=== PATIENT | male | born 1955 | race Caucasian/White ===

== ENCOUNTER 2019-12-26 14:07 | Emergency (ER) | payer OTHER, SELFPAY ==
[2019-12-26 14:20] VITALS: BP 144/83; PULSE 110; RESP 20; TEMP 37.8; O2SAT 100
--- NOTE | 2019-12-26 14:50 | ED.GENADULT ---
HPI - General Adult General Chief complaint: Upper Respiratory Infection Stated complaint: fever dizzy aches cough Time Seen by Provider: 12/26/19 14:50 Source: patient and RN notes reviewed Mode of arrival: ambulatory Limitations: no limitations History of Present Illness HPI narrative: 64-year-old male with complaints of upper respiratory infection symptoms, body aches, sore throat, fever and chills, congestion, cough, and intermittent dizziness with coughing spells (none now) and intermittent headache (not the worst of his life) for 2 days. Nytime cold medicine without relief. Dry cough. Rhinorrhea and nasal congestion. No exacerbating factors. Fevers, highest 100F, orally with chills. No nausea, vomiting, and abdominal pain. Denies chest pain, dyspnea, coughing up blood, difficulty swallowing, jaw pain, dental pain, facial pain, foreign body sensation, and rash. Remains active. Some parts of this dictation were generated by voice recognition software and may contain typographical and/or grammatical inaccuracies. Related Data Home Medications Medication Instructions Recorded Confirmed No Home Medications 12/26/19 12/26/19 Allergies Allergy/AdvReac Type Severity Reaction Status Date / Time No Known Allergies Allergy Verified 12/26/19 14:38 Review of Systems Review of Systems: Narrative: CONSTITUTIONAL: Complains of low-grade fever, chills. Denies sweats. EYES: Denies visual changes, redness, discharge. ENT: Complains of rhinorrhea, congestion, sore throat. Denies otalgia. CARDIOVASCULAR: Denies chest pain, palpitations, edema. RESPIRATORY: Denies dyspnea, wheezing. Complains of dry cough. GASTROINTESTINAL: Denies abdominal pain, nausea, vomiting, diarrhea. GENITOURINARY: Denies dysuria, hematuria, abnormal discharge. SKIN: Denies rash or itching. MUSCULOSKELETAL: Denies acute back pain, joint pain. Complains of myalgia. NEUROLOGIC: Denies numbness or focal weakness. Complains of intermittent GABRIEL and dizziness with coughing episodes. PSYCHIATRIC: Denies anxiety or depression. All systems reviewed & are unremarkable except as noted in HPI and below PMFSH Past Medical History Medical History (Updated 12/26/19 @ 15:39 by ADA Garcia) No significant past medical history Surgical History Surgical History (Updated 12/26/19 @ 15:39 by ADA Garcia) No significant past surgical history Family History Family History (Updated 12/26/19 @ 15:40 by ADA Garcia) Sibling Breast cancer Father Cancer Mother Cancer Social History Social History (Updated 12/26/19 @ 15:40 by ADA Garcia) Smoking status: Never smoker Alcohol intake: never Substance use: never Occupation/Education: occupation Gender identity (if verbalized by the patient): Male Comments At time of signature, agree with nurse past medical, surgical, social, and family history. There is no relevant family history pertinent to the presenting complaint. Exam Narrative: Exam Narrative: GENERAL: This is a well-nourished, well-developed patient, in no apparent distress. Speaks in full sentences and ambulates with steady gait without dyspnea. HEAD: normocephalic, atraumatic. EYES: PERRL. Sclera clear/white. Vision is grossly intact. EARS: External ears normal, auditory canals clear and without drainage, TMs normal without perforation. Hearing grossly intact. NOSE: External nose normal with no obvious nasal discharge, left nares with mild redness and enlarged turbinates, yellow rhinorrhea. Right nare with mild redness and yellow rhinorrhea without enlarged turbinates. THROAT: Mucous membranes moist, posterior pharynx with PND, mild erythema, and no exudate to tonsils. Tonsils normal. No drainage, no concern for Peritonsillar abscess. No drooling, trismus, or neck swelling. NECK: Neck supple, non-tender without lymphadenopathy, masses or thyromegaly. CARDIOVASCULAR: Regular rate and rhy
== END 2019-12-26 15:11 | disposition home or self-care (01) ==
PROVIDERS: Emergency Provider Nurse Practitioner Family
DX: J02.9 Acute pharyngitis, unspecified (principal)
CPT/HCPCS: 87081; 87804; 87880; 99213; G0463

== ENCOUNTER 2020-01-01 11:21 | Emergency (ER) | payer OTHER, SELFPAY ==
[2020-01-01 11:29] VITALS: BP 145/86; PULSE 94; RESP 14; TEMP 36.9; O2SAT 100
--- NOTE | 2020-01-01 11:34 | ED.GENADULT ---
HPI - General Adult General Chief complaint: Upper Respiratory Infection Stated complaint: Cold flu symptoms Time Seen by Provider: 01/01/20 11:36 Source: patient and RN notes reviewed Mode of arrival: ambulatory Limitations: no limitations History of Present Illness HPI narrative: This is a 64 years old male presented office for an a return to work note. 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 Otherwise he feels fine. He has a doctor but has not seen him for the last three days. Denies history of HTN. Related Data Allergies Allergy/AdvReac Type Severity Reaction Status Date / Time No Known Allergies Allergy Verified 01/01/20 11:36 Review of Systems Review of Systems: Narrative: CONSTITUTIONAL: Denies fever or feeling ill ENT: Denies congestion or sore throat CARDIOVASCULAR: Denies chest pain RESPIRATORY: Denies dyspnea, wheezing. Reports a little cough GASTROINTESTINAL: Denies abdominal pain, nausea, vomiting, diarrhea. GENITOURINARY: Denies urinary symptoms SKIN: Denies rash MUSCULOSKELETAL: Denies acute back pain NEUROLOGIC: Denies lightheaded PMFSH Past Medical History Medical History GERD (gastroesophageal reflux disease) Surgical History Surgical History No significant past surgical history Family History Family History Sibling Breast cancer Father Cancer Mother Cancer Social History Social History Smoking status: Never smoker Alcohol intake: never Substance use: never Gender identity (if verbalized by the patient): Male Comments At time of signature, I agree with nursing past medical, surgical, social and family history. There is no relevant family history pertinent to the presenting complaint. Exam Narrative: Exam Narrative: GENERAL: This is a well-nourished, well-developed patient, in no apparent distress. EARS: External ears normal, auditory canals clear and without drainage, TMs normal without perforation. Hearing grossly intact. NOSE: External nose normal with no obvious nasal discharge, nares without redness, no rhinorrhea. THROAT: Mucous membranes moist, posterior pharynx clear. NECK: Neck supple, non-tender without lymphadenopathy, masses or thyromegaly. CARDIOVASCULAR: Regular rate and rhythm without murmurs, gallops, or rubs. RESPIRATORY: Clear to auscultation. Breath sounds equal bilaterally. No wheezes, rales, or rhonchi. GASTROINTESTINAL: Abdomen soft, non-tender, nondistended. Bowel sounds are active. No hepato-splenomegaly, or palpable masses. No guarding. SKIN: warm, intact with no suspicious lesions or rash, good texture and turgor. NEURO: awake, alert, and oriented to person, place and time. There were no obvious focal neurologic abnormalities. Steady gait Elizabeth Coma Scale Eye Opening: Spontaneous 4 Angie Coma Scale Motor: Obeys Commands 6 Elizabeth Coma Scale Verbal: Oriented 5 Course Vital Signs Vital signs: Vital Signs Temperature 98.4 F 01/01/20 11:29 Pulse Rate 94 01/01/20 11:29 Respiratory Rate 14 01/01/20 11:29 Blood Pressure 145/86 H 01/01/20 11:29 Pulse Oximetry 100 01/01/20 11:29 Temperature 98.4 F 01/01/20 11:29 Pulse Rate 94 01/01/20 11:29 Respiratory Rate 14 01/01/20 11:29 Blood Pressure 145/86 H 01/01/20 11:29 Pulse Oximetry 100 01/01/20 11:29 Medical Decision Making MDM Narrative Medical decision making narrative: Discharge instructions reviewed with patient, as well as provided in writing per nursing staff. The instructions also include specific a
== END 2020-01-01 11:50 | disposition home or self-care (01) ==
PROVIDERS: Emergency Provider Nurse Practitioner
DX: Z02.79 Encounter for issue of other medical certificate (principal); R03.0 Elevated blood-pressure reading, without diagnosis of hypertension; K21.9 Gastro-esophageal reflux disease without esophagitis
CPT/HCPCS: 99211; G0463

== ENCOUNTER 2024-02-21 12:25 | Emergency (ER) | payer BC, SELFPAY ==
[2024-02-21 12:35] VITALS: BP 178/101; PULSE 77; RESP 20; TEMP 37; O2SAT 98
--- NOTE | 2024-02-21 12:49 | ED.GENADULT ---
HPI - General Adult General Chief complaint: Headache Stated complaint: Blood pressure high Source: patient Mode of arrival: ambulatory Limitations: no limitations History of Present Illness HPI narrative: Patient presents for evaluation of headache and elevated blood pressure. He indicates he has had right occipital headache on and off for the last 3 days. Pain was a dull ache. At worst pain was 8/10 in severity. He took ibuprofen and excedrin which both seemed to help. He took a dose of Excedrin at 6:00 a.m. this morning and has been pain-free since noon today. He felt dizzy earlier today. Due to recurrence of his symptoms his son checked his blood pressure which was in the 190/110's. His son told him with an elevated blood pressure to that degree he could have a stroke. That made him anxious so he opted to come in for further evaluation. He reports an increase in stress as of late related to work. On arrival here his blood pressure is 178/101. No history of headaches or hypertension. Denies any changes with speech, swallowing, movement or sensation in his extremities, nausea, vomiting, or confusion. He reports some recent postnasal drainage and occasional cough. He states at the present time he feels great. He does not smoke. Related Data Allergies Allergy/AdvReac Type Severity Reaction Status Date / Time No Known Allergies Allergy Verified 02/21/24 12:41 Review of Systems Review of Systems: CONSTITUTIONAL: Denies fever, chills, or sweats. EYES: Denies visual changes, redness, or discharge. ENT: Reports postnasal drainage. Denies congestion, sore throat, or otalgia. CARDIOVASCULAR: Denies chest pain, palpitations, or edema. RESPIRATORY: Reports mild occasional cough. Denies shortness of breath GASTROINTESTINAL: Denies abdominal pain, nausea, vomiting, or diarrhea. GENITOURINARY: Denies dysuria or hematuria. SKIN: Denies rash or itching. MUSCULOSKELETAL: Denies back pain, joint pain, or myalgia. NEUROLOGIC: Reports dizziness earlier today, now resolved. Reports recent headache, none currently. Denies numbness, dizziness, or weakness. PSYCHIATRIC: Reports recent anxiety, now improved. Denies depression. [facility] Past Medical History Medical History (Updated 02/21/24 @ 14:13 by Abdirahman Hamilton, [employer], ) GERD (gastroesophageal reflux disease) Surgical History Surgical History No significant past surgical history Family History Family History Sibling Breast cancer Father Cancer Mother Cancer Social History Social History Smoking status: Never smoker Alcohol intake: never Substance use: never Occupation/Education: occupation Gender identity (if verbalized by the patient): Male Exam Narrative: GENERAL: Well-appearing, well-nourished, and in no acute distress. HEAD: Normocephalic, atraumatic. EYES: PERRLA and EOMI. ENT: Nares clear, no rhinorrhea or epistaxis. Mucous membranes moist. Oropharynx without tonsillar hypertrophy exudate or other lesions. Bilateral TMs pearly lewis nonbulging NECK: Supple. No adenopathy or masses. No carotid bruits or JVD CHEST: Clear to auscultation. No respiratory distress. No wheezes rales or rhonchi HEART: Regular rate and rhythm. No murmur heard. Normal peripheral pulses. ABDOMEN: Soft, nontender, nondistended, normal active bowel sounds. EXTREMITIES: Normal range of motion. No edema. SKIN: Warm, dry, no rash. NEURO: No focal deficits. Alert and oriented x3. Normal [id number] exam. Able to perform rapid alternating movements without difficulty. Comprehensive neurological exam intact. PSYCH: Normal mood and affect. Course Course Emergency Course: This is a 68-year-old male who presented for evaluation of headache and elevated blood pressure reading at [facility]
[2024-02-21 14:00] VITALS: BP 154/94
--- NOTE | 2024-02-21 14:01 | PC.NURSE ---
PT DOES REPORT HAS BEEN TAKING OTC SCHNUCKS BRAND OTC COUGH AND COLD MEDICINE FOR 3 DAYS.
== END 2024-02-21 14:24 | disposition home or self-care (01) ==
PROVIDERS: Emergency Provider Nurse Practitioner
DX: R03.0 Elevated blood-pressure reading, without diagnosis of hypertension (principal); R51.9 Headache, unspecified; Z20.822 Contact with and (suspected) exposure to COVID-19; K21.9 Gastro-esophageal reflux disease without esophagitis
CPT/HCPCS: 87426; 87804; 99203; G0463

== ENCOUNTER 2024-03-18 10:25 | Emergency (ER) | payer BC, SELFPAY ==
[2024-03-18 10:41] VITALS: BP 158/95; PULSE 86; RESP 16; O2SAT 98
--- NOTE | 2024-03-18 10:58 | PC.NURSE ---
dr. galvez office called by this rn and they will make appt. for new pt. pt aware to call office to schedule appt. for new pt.
--- NOTE | 2024-03-18 11:14 | ED.GENADULT ---
HPI - General Adult General Chief complaint: Recheck/Abnormal Lab/Rx Stated complaint: Medication Refill Time Seen by Provider: 03/18/24 11:15 Source: patient, RN notes reviewed and old records reviewed Mode of arrival: ambulatory Limitations: no limitations History of Present Illness HPI narrative: 68-year-old [facility] to [facility] requesting blood pressure medication refill. Patient states that he was seen here approximately 1 month ago and advised to set up an appointment with primary care. Patient states he has been attempting to get in with Dr. Johnson and there is an extended wait time for new patients. Patient reports checking his blood pressure daily when he returns home from work. Pt states he is running in 130s at home. Patient denies chest pain, shortness of, visual changes, headaches, dizziness. Patient in no acute distress. Related Data Allergies Allergy/AdvReac Type Severity Reaction Status Date / Time No Known Allergies Allergy Verified 03/18/24 10:31 Review of Systems Review of Systems: All systems reviewed & are unremarkable except as noted in HPI and below Constitutional: Constitutional: Reports as per HPI, Denies fatigue and Denies headache(s) Eyes: Eyes: Reports as per HPI and Denies change in vision ENT: Reports system reviewed and no additional complaints, except as documented Cardiovascular: Cardiovascular: Reports no additional cardiovascular complaints, Denies chest pain and Denies dyspnea Respiratory: Respiratory: Reports no additional respiratory complaints, Denies cough and Denies dyspnea Musculoskeletal: Musculoskeletal: Reports no additional musculoskeletal complaints Neurologic: Reports system reviewed and no additional complaints, except as documented Psychiatric: Psychiatric: Reports no additional psychiatric complaints [facility] Past Medical History Medical History GERD (gastroesophageal reflux disease) Surgical History Surgical History No significant past surgical history Family History Family History Sibling Breast cancer Father Cancer Mother Cancer Social History Social History Smoking status: Never smoker Alcohol intake: never Substance use: never Occupation/Education: occupation Gender identity (if verbalized by the patient): Male Comments At the time of my signature, I reviewed and agree with the nursing past medical, surgical, social, and family history. There is no relevant family history pertinent to the patient complaint. Exam Const: General: cooperative, healthy appearing, comfortable, no acute distress, alert, anxious and well nourished Nutritional Appearance: well nourished Orientation/consciousness: patient oriented x3 Limitations: no limitations HENMT: Head: normal to inspection Ears: external ears normal Face/Nose/Sinus: Normal external nose present, Normal nares present, normal facial exam, No erythema and No edema Face and sinus: normal facial exam, no erythema and no edema Mouth: Yes Normal oral and palatal mucosa present Eyes: General: appearance normal, both eyes and all related structures Neck: Neck: normal visual inspection, full ROM and no meningeal signs Lymphatic: no lymphadenopathy noted and no lymphedema noted Chest: Chest palpation & inspection: normal inspection of the chest Resp: Effort & Inspection: normal respiratory effort and able to speak in complete sentences Auscultation: clear to auscultation bilaterally Cardio: Jugular venous distension: no JVD Rate: regular rate Rhythm: regular rhythm Back/Spine/Pelvis: Cervical Spine: cervical ROM normal Skin: General skin exam: normal color, no rashes or lesions noted and turgor normal Neuro: General: patient oriented x3, gait norm
== END 2024-03-18 11:40 | disposition home or self-care (01) ==
PROVIDERS: Emergency Provider Nurse Practitioner Family
DX: I10 Essential (primary) hypertension (principal)
CPT/HCPCS: 99211; 99213; G0463

== ENCOUNTER 2024-04-22 14:15 | Outpatient (CLI) | payer BC, SELFPAY ==
[2024-04-22 20:13] LABS: Basophils Absolute Auto 0.1 K/mm3 (0.0-0.1); Eosinophils Absolute Auto 0.1 K/mm3 (0-0.3); Eosinophils Percent Auto 1.1 % (0-4.4); Hematocrit 43.8 % (42.0-52.0); Hemoglobin 12.9 g/dL (14.0-18.0); Immature Granulocyte Absolute 0.02 K/mm3 (0.00-0.031); Immature Granulocyte Percent A 0.3 % (0-0.5); Lymphocytes Absolute Auto 1.73 K/mm3 (0.9-3.2); Mean Corpuscular HGB Conc 29.5 g/dl (32-36); Mean Corpuscular Volume 74.6 fl (80-100); Mean Platelet Volume 10.9 fl (7.4-10.4); Monocytes Absolute Auto 0.7 K/mm3 (0.1-0.6); Monocytes Percent Auto 8.9 % (2.6-8.5); Neutrophils Absolute Auto 5.2 K/mm3 (1.3-6.7); Neutrophils Percent Auto 66.7 % (45.5-73.1); Platelet Count Result 284 k/mm3 (150-375); Red Blood Count 5.87 M/mm3 (4.6-6.20); Red Cell Distribution Width 18.2 % (11.5-14.5); White Blood Count 7.9 K/mm3 (4.5-10.0)
[2024-04-22 20:37] LABS: Large Platelets Present; Ovalocytes 1+; Platelet Estimate Adequate (Adequate); Schistocytes None Seen
[2024-04-22 22:57] LABS: Alanine Aminotransferase 23 U/L (6-50); Albumin Level 4.6 g/dL (3.5-5.1); Alkaline Phosphatase 78 U/L (38-126); Anion Gap 7 mmol/L (4-12); Aspartate Amino Transferase 37 U/L (17-59); Bilirubin,Total 0.9 mg/dL (0.2-1.3); Blood Urea Nitrogen 17 mg/dL (9-20); Calcium 9.3 mg/dL (8.4-10.2); Carbon Dioxide 26 mmol/L (22-30); Chloride 106 mmol/L (98-107); Cholesterol 164 mg/dL (0-200); Estimated Glomerular Filt Rate > 60; Glucose 89 mg/dL (65-110); HDL Direct 54 mg/dL; Magnesium 2.2 mg/dL (1.6-2.3); Potassium 4.2 mmol/L (3.4-5.0); Sodium 139 mmol/L (137-145); Triglycerides 106 mg/dL (<150)
[2024-04-22 23:08] LABS: LDL Cholesterol Direct 93 mg/dL
[2024-04-22 23:26] LABS: Prostate Specific Antigen 4.8 ng/mL (< OR = 4.0)
[2024-04-23 04:23] LABS: Free T4 Free Thyroxine Reflex 1.13 ng/dL (0.78-2.19)
[2024-04-23 05:13] LABS: Total Triiodothyronine (T3) 1.37 NG/ML (0.97-1.69)
== END 2024-04-22 14:16 | disposition home or self-care (01) ==
LOC: ANHBWCLAB 14:17
PROVIDERS: PCP Nurse Practitioner Adult Health; Visit Provider Nurse Practitioner Adult Health
DX: I10 Essential (primary) hypertension (principal); Z12.5 Encounter for screening for malignant neoplasm of prostate
CPT/HCPCS: 36415; 80053; 80061; 83735; 84153; 84439; 84443; 84480; 85025; G0103

== ENCOUNTER 2024-04-27 12:50 | Outpatient (CLI) | payer BC, SELFPAY ==
[2024-04-27 19:13] LABS: Iron 34 ug/dL (49-181)
[2024-04-27 19:32] LABS: Percent Iron Saturation 6 % (20-50)
[2024-04-27 19:47] LABS: Ferritin 6.34 ng/mL (11.1-264)
== END 2024-04-27 12:51 | disposition home or self-care (01) ==
LOC: ANHBWCLAB 12:52
PROVIDERS: PCP Nurse Practitioner Adult Health; Visit Provider Nurse Practitioner Adult Health
DX: D64.9 Anemia, unspecified (principal)
CPT/HCPCS: 36415; 82728; 83540; 83550

== ENCOUNTER 2024-12-13 15:45 | Outpatient (CLI) | payer BC, SELFPAY ==
[2024-12-13 20:35] LABS: Basophils Absolute Auto 0.1 K/mm3 (0.0-0.1); Basophils Percent Auto 1.2 % (0.2-1.2); Eosinophils Absolute Auto 0.1 K/mm3 (0-0.3); Eosinophils Percent Auto 1.2 % (0-4.4); Hematocrit 46.8 % (42.0-52.0); Hemoglobin 15.1 g/dL (14.0-18.0); Immature Granulocyte Absolute 0.02 K/mm3 (0.00-0.031); Immature Granulocyte Percent A 0.3 % (0-0.5); Lymphocytes Percent Auto 23.1 % (18.3-44.2); Mean Corpuscular HGB Conc 32.3 g/dl (32-36); Mean Corpuscular Hemoglobin 26.9 pg (26-34); Mean Corpuscular Volume 83.4 fl (80-100); Mean Platelet Volume 10.1 fl (7.4-10.4); Monocytes Absolute Auto 0.7 K/mm3 (0.1-0.6); Monocytes Percent Auto 10.1 % (2.6-8.5); Neutrophils Absolute Auto 4.5 K/mm3 (1.3-6.7); Neutrophils Percent Auto 64.1 % (45.5-73.1); Platelet Count Result 249 k/mm3 (150-375); Red Blood Count 5.61 M/mm3 (4.6-6.20); Red Cell Distribution Width 13.2 % (11.5-14.5); White Blood Count 6.9 K/mm3 (4.5-10.0)
[2024-12-13 20:42] LABS: Iron 71 ug/dL (49-181)
[2024-12-13 20:44] LABS: Alanine Aminotransferase 31 U/L (6-50); Albumin Level 4.3 g/dL (3.5-5.1); Alkaline Phosphatase 74 U/L (38-126); Anion Gap 10 mmol/L (4-12); Aspartate Amino Transferase 35 U/L (17-59); Bilirubin,Total 0.7 mg/dL (0.2-1.3); Blood Urea Nitrogen 19 mg/dL (9-20); Calcium 9.1 mg/dL (8.4-10.2); Carbon Dioxide 25 mmol/L (22-30); Chloride 102 mmol/L (98-107); Cholesterol 180 mg/dL (0-200); Estimated Glomerular Filt Rate > 60; Glucose 98 mg/dL (65-110); HDL Direct 51 mg/dL; Potassium 3.6 mmol/L (3.4-5.0); Sodium 137 mmol/L (137-145); Triglycerides 177 mg/dL (<150)
[2024-12-13 20:55] LABS: LDL Cholesterol Direct 106 mg/dL
[2024-12-13 21:02] LABS: Percent Iron Saturation 17 % (20-50)
[2024-12-13 21:15] LABS: Prostate Specific Antigen 4.4 ng/mL (< OR = 4.0)
[2024-12-14 00:08] LABS: Total Triiodothyronine (T3) 1.18 NG/ML (0.97-1.69)
== END 2024-12-13 15:46 | disposition home or self-care (01) ==
LOC: ANHBWCLAB 15:46
PROVIDERS: PCP Nurse Practitioner Adult Health; Visit Provider Nurse Practitioner Adult Health
DX: D64.9 Anemia, unspecified (principal); I10 Essential (primary) hypertension; R97.20 Elevated prostate specific antigen [PSA]
CPT/HCPCS: 36415; 80053; 80061; 82728; 83540; 83550; 84153; 84439; 84443; 84480; 85025